=== PATIENT | male | born 1995 | race Two or more races ===

== ENCOUNTER 2020-02-14 06:17 | Emergency (ER) | payer OTHER ==
[~2020-02-14] VITALS: Ht 157.5 cm; Wt 59.0 kg
--- NOTE | 2020-02-14 06:29 | NUR ---
[facility] [employer] AND [employer] FOR L MID FINGER LAC AND MEDICAL CLEARANCE. TO ER BED 6
--- NOTE | 2020-02-14 06:40 | NUR ---
TECH AT BEDSIDE FOR XRAY
[2020-02-14 07:05] VITALS: BP 132/87
--- NOTE | 2020-02-14 07:05 | NUR ---
Patient discharged to home in stable condition. Written and verbal after care instructions given. Patient verbalizes understanding of instruction.
== END 2020-02-14 07:05 ==
LOC: ER 06:21
DX: S61.301A Unspecified open wound of left index finger with damage to nail, initial encounter (principal); S61.303A Unspecified open wound of left middle finger with damage to nail, initial encounter; W22.8XXA Striking against or struck by other objects, initial encounter; Y93.89 Activity, other specified; Y92.89 Other specified places as the place of occurrence of the external cause; Y99.8 Other external cause status
CPT/HCPCS: 73130; 99283; A6403